=== PATIENT | female | born 1995 | race Caucasian/White ===

== ENCOUNTER 2016-12-15 03:14 | Emergency (ER) | payer BC ==
[~2016-12-15] VITALS: Ht 160 cm; Wt 65.9 kg
[~2016-12-15 03:14] MED LIST: AMOXICILLIN 8751 TAB PO; BENADRYL25 M2 PO; CLARITIN-D 10 M1 T24 PO; CYCLAFEM 1/35 31 TAB PO; NASONEX SPRAY17 GM NS; NORCO 325 MG-51 TAB PO; PROTONIX 40MG T40 MG PO; ZYRTEC 10MG10 MG PO; ZYRTEC-D 5 MG-11 TER PO
[2016-12-15 03:17] VITALS: BP 134/73; TEMP 100.2
[2016-12-15] MEDS ORDERED: ULTRAM 50MG TAB50 MG PO (03:40)
[2016-12-15 04:11] VITALS: PULSE 98
== END 2016-12-15 04:18 | disposition home or self-care (01) ==
LOC: COL.ER 03:14
DX: J02.8 Acute pharyngitis due to other specified organisms (principal)